=== PATIENT | male | born 2005 | race Two or more races ===

== ENCOUNTER 2024-06-25 01:13 | Emergency (ER) | payer MEDICAID, OTHER ==
[~2024-06-25] VITALS: Ht 177.8 cm; Wt 100.0 kg
--- NOTE | 2024-06-25 03:03 | DVH ---
CLINICAL INDICATION: JUMPED ABOUT A FOOT DOWN LANDED ON RIGHT FOOT TECHNIQUE: Frontal, lateral and oblique XY R FOOT 3 VIEW XRAY Comparison: None FINDINGS/IMPRESSION: : Comminuted and impacted fractures of the calcaneus with small fracture fragments in the sole of foot. The subtalar joint appears intact. The ankle joint is intact. Significant soft tissue swelling at the hindfoot.
[2024-06-25 03:20] VITALS: PULSE 90; RESP 15; TEMP 98.3; O2SAT 97
[2024-06-25] MEDS: ONDANSETRON HCL 4 MG/2 ML VIAL IV ONE (03:42)
[2024-06-25] MEDS: MORPHINE SULFATE 4 MG/ML SYR/VIAL IV ONE (03:42)
[2024-06-25] MEDS: ACETAMINOPHEN IV 1000 MG/100ML (10MG/ML) IV ONE (04:04)
[2024-06-25] MEDS: KETOROLAC TROMETH 30 MG/ML 1ML VIAL IV ONE (04:04)
[2024-06-25] MEDS: fentaNYL CITRATE 100 MCG/2 ML VL IV ONE ×2 (04:12→05:51)
--- NOTE | 2024-06-25 04:49 | ED.PDOC ---
Past Medical History PAST MEDICAL HISTORY: Denies Surgical History: Denies all surgeries Family History Family History: Reviewed,noncontributory to illness Social History Smoker: Non-Smoker Alcohol: Denies ETOH Use Drugs: Denies Drug Use Lives In: Home Vital Signs Vital Signs Date Time Temp Pulse Resp B/P (MAP) Pulse Ox O2 Delivery O2 Flow Rate FiO2 06/25/24 04:12 157/84 06/25/24 04:12 80 16 06/25/24 03:20 97 Room Air* 0 21 06/25/24 03:20 98.3 98.3 Was a procedure done? Was a procedure done?: No Differential Diagnosis EXT Differential Diagnosis: Cellulitis, Fracture, Sprain, Dislocation, Strain X-Ray, Labs, Meds, VS Vital Signs Date Time Temp Pulse Resp B/P (MAP) Pulse Ox O2 Delivery O2 Flow Rate FiO2 06/25/24 04:12 157/84 06/25/24 04:12 80 16 140/82 06/25/24 03:42 90 1 157/84 06/25/24 03:20 90 15 97 Room Air* 0 21 06/25/24 03:20 98.3 90 15 157/84 (108) 97 98.3 06/25/24 01:47 98.8 102 18 144/84 (104) 98 Current Medications Medications (Trade) Dose Ordered Sig/Lucero Route Start Time Stop Time Status Last Admin Ondansetron HCl (Zofran) 4 mg ONCE ONCE IV 06/25/24 03:30 06/25/24 03:31 DC 06/25/24 03:42 Morphine Sulfate 4 mg ONCE ONCE IV 06/25/24 03:30 06/25/24 03:31 DC 06/25/24 03:42 Ketorolac Tromethamine (Toradol Injection) 30 mg ONCE ONCE IV 06/25/24 04:00 06/25/24 04:01 DC 06/25/24 04:04 Acetaminophen (Ofirmev) 1,000 mg ONCE ONCE IV 06/25/24 04:00 06/25/24 04:01 DC 06/25/24 04:04 Fentanyl Citrate 25 mcg ONCE ONCE IV 06/25/24 04:00 06/25/24 04:06 DC 06/25/24 04:12 PROCEDURE(s): RFOOT - R FOOT 3 VIEW XRAY CLINICAL INDICATION: JUMPED ABOUT A FOOT DOWN LANDED ON RIGHT FOOT TECHNIQUE: Frontal, lateral and oblique XY R FOOT 3 VIEW XRAY Comparison: None FINDINGS/IMPRESSION: : Comminuted and impacted fractures of the calcaneus with small fracture fragments in the sole of foot. The subtalar joint appears intact. The ankle joint is intact. Significant soft tissue swelling at the hindfoot. Time of 1ST Reevaluation: 04:20 Reevaluation 1ST: Unchanged Patient Education/Counseling: Diagnosis, Treatment Family Education/Counseling: Diagnosis, Treatment Departure 1 Departure Comments Extensive evaluation was performed in attempt to identify or rule out: (See differential diagnosis section) The following tests were ordered, and results were reviewed by me: (See diagnostic results section) The following test were independently interpreted by me: N/A I reviewed and agreed with the following test results read by other providers: N/A I reviewed the following notes from the pt's past medical encounters: (None available at this time) Additional information was gathered from interviewing the following independent historians: N/A Discussion of management or test interpretation with external physician/other qualified health home health care worker: N/A Addressed [ ]one or more chronic illnesses with severe exacerbation, progres jennifer, or side effects of treatment: [ ]an acute or chronic illness that poses a threat to life or bodily function: [ ] Decision regarding hospitalization or escalation of hospital level of care: Risk and benefits of admission for further treatment of patient's condition was considered. Due to patient's current clinical condition, high risk of decline and poor outcome if discharged and need for further inpatient management and monitoring, patient will be admitted to the hospital. Drug therapy requiring intensive monitoring for toxicity: N/A Parenteral controlled substances: N/A Decision regarding elective major surgery with identified patient or procedure risk factors: N/A Decision regarding emergency major surgery: N/A Decision not to resuscitate or to de-escalate care because of poor prognosis: N/A Diagnosis or treatment significantly limited by social determinants of health: N/A Decision regarding hospitalization or escalation of hospital level of care: Risks and benefits of admission for further treatment of patient's condition was considered however due to patient's stable condition patient will be discharged to follow up closely or return to care for worsening of condition or inability to follow up. Critical Care Note Critical Care Time?: Yes (35 min-critical care time only) Critical care comment: Calcaneal fracture Stability Stability form required: No Heart Score Heart Score: Heart Score Response (Comments) Value History N/A 0 EKG N/A 0 Age N/A 0 Risk Factors N/A 0 Troponin N/A 0 Total 0 I personally scribed for CELSO VIGIL MD ([email or web address]) on 06/25/24 at 04:49. Electronically submitted by Cipriano Barrera (Bringrs). I personally scribed for CELSO VIGIL MD ([email or web address]) on 06/25/24 at 04:52. Electronically submitted by Cipriano Barrera ([employer]). CELSO VIGIL MD Jun 25, 2024 04:49
--- NOTE | 2024-06-25 04:58 | ED.PDOC ---
Musculoskeletal HPI Comments 19 year old male came to ER due to right foot pain., Patient states he jumped and his right foot landed badly on some rocks. Noted pain and swelling on the heel of his right foot. No other injuries noted. Chief Complaint: Lower Extremity Time Seen by MD: 04:56 Reviewed Notes: Nurses Notes Allergies: Coded Allergies: No Known Drug Allergy (Verified Allergy, Unknown, 06/25/24) Information Source: Patient Mode of Arrival: Ambulatory Location: Right Extremity Location: Foot Timing: Minutes Prehospital treatment: None Severity: Moderate Able to Move Extremity: Yes Bear Weight: Limited Pain: Moderate Hand Dominance: Right Mechanism: Blunt Trauma Circumstances: Fall Onset of Symptoms: After Trauma Symptoms: Swelling, Pain Associated signs and symptoms: Foot pain (right) Review of Systems REVIEW OF SYSTEMS: No fever, no chills, or fatigue HEENT: No sore throat, no earache, no congestion, no neck pain. Cardiac: No chest pain. No palpitations. Lungs: No shortness of breath, no cough. GI: No nausea, no vomiting, no diarrhea, no constipation, no abdominal pain : No dysuria, frequency, or urgency. No hematuria. Musculoskeletal: No joint pain , no joint swelling, no extremity edema. (+) right foot pain Skin: No rash, no itching. Neuro: No headache, no dizziness, no weakness Vital Signs Vital Signs Date Time Temp Pulse Resp B/P (MAP) Pulse Ox O2 Delivery O2 Flow Rate FiO2 06/25/24 04:12 157/84 06/25/24 04:12 80 16 06/25/24 03:20 97 Room Air* 0 21 06/25/24 03:20 98.3 98.3 Physical Exam General: Awake, alert and oriented. No acute distress. Skin: Skin in warm, dry and intact. Appropriate color for ethnicity. Nailbeds pink with no cyanosis. HEENT: The head is normocephalic and atraumatic. Conjunctivae are clear without exudates or hemorrhage. Sclera is non-icteric. EOM are intact. No signs of nystagmus. Eyelids are normal in appearance without swelling or lesions. Oral mucosa is pink and moist Neck: The neck is supple with normal range of motion. No JVD. Cardiac: Heart rate and rhythm are normal. No murmurs, gallops, or rubs are auscultated. Respiratory: No signs of respiratory distress. Lung sounds are clear in all lobes bilaterally without rales, ronchi, or wheezes. Abdominal: Abdomen is soft, non-tender without distention. Bowel sounds are present and normoactive in all four quadrants. Extremities: Upper and lower extremities are atraumatic in appearance without deformity or edema. Neurological: The patient is awake, alert and oriented to person, place, and time with normal speech. Speech is clear. There is no facial asymmetry. Psychiatric: Appropriate mood and affect. Good judgement and insight. No visual or auditory hallucinations. Past Medical History PAST MEDICAL HISTORY: Denies Surgical History: Denies all surgeries Family History Family History: Reviewed,noncontributory to illness Social History Smoker: Non-Smoker Alcohol: Denies ETOH Use Drugs: Denies Drug Use Lives In: Home Was a procedure done? Was a procedure done?: No Differential Diagnosis EXT Differential Diagnosis: Fracture, Sprain, Dislocation, Strain X-Ray, Labs, Meds, VS Vital Signs Date Time Temp Pulse Resp B/P (MAP) Pulse Ox O2 Delivery O2 Flow Rate FiO2 06/25/24 04:12 157/84 06/25/24 04:12 80 16 140/82 06/25/24 03:42 90 1 157/84 06/25/24 03:20 90 15 97 Room Air* 0 21 06/25/24 03:20 98.3 90 15 157/84 (108) 97 98.3 06/25/24 01:47 98.8 102 18 144/84 (104) 98 Current Medications Medications (Trade) Dose Ordered Sig/Lucero Route Start Time Stop Time Status Last Admin Ondansetron HCl (Zofran) 4 mg ONCE ONCE IV 06/25/24 03:30 06/25/24 03:31 DC 06/25/24 03:42 Morphine Sulfate 4 mg ONCE ONCE IV 06/25/24 03:30 06/25/24 03:31 DC 06/25/24 03:42 Ketorolac Tromethamine (Toradol Injection) 30 mg ONCE ONCE IV 06/25/24 04:00 06/25/24 04:01 DC 06/25/24 04:04 Acetaminophen (Ofirmev) 1,000 mg ONCE ONCE IV 06/25/24 04:00 06/25/24 04:01 DC 06/25/24 04:04 Fentanyl Citrate 25 mcg ONCE ONCE IV 06/25/24 04:00 06/25/24 04:06 DC 06/25/24 04:12 PROCEDURE(s): RFOOT - R FOOT 3 VIEW XRAY CLINICAL INDICATION: JUMPED ABOUT A FOOT DOWN LANDED ON RIGHT FOOT TECHNIQUE: Frontal, lateral and oblique XY R FOOT 3 VIEW XRAY Comparison: None FINDINGS/IMPRESSION: : Comminuted and impacted fractures of the calcaneus with small fracture fragments in the sole of foot. The subtalar joint appears intact. The ankle joint is intact. Significant soft tissue swelling at the hindfoot. Time of 1ST Reevaluation: :20 Reevaluation 1ST: Unchanged Patient Education/Counseling: Diagnosis, Treatment Family Education/Counseling: Diagnosis, Treatment Departure 1 Departure Time of Disposition: : Impression: Primary Impression: Closed right calcaneal fracture Disposition: HOME / SELF CARE / HOMELESS Condition: Stable Additional Instructions: ED DISCHARGE INSTRUCTIONS Instructions: Please read all instructions provided in this packet carefully. DO NOT PUT ANY WEIGHT ON THE RIGHT FOOT. USE CRUTCHES FOR WALKING. FOLLOW UP WITH ORTHOPEDICS OR PODIATRY SOON POSSIBLE (WITHIN THE NEXT WEEK). YOU WILL NEED A REFERRAL FROM YOUR PRIMARY CARE PROVIDER. TAKE PAIN MEDICATION PRESCRIBED. DO NOT TAKE MORE THAN IS NEEDED. Although you have been discharged from the Emergency Department, this does not mean that you have a "clean bill of health". No definitive diagnosis for your symptoms has been made today. It is possible that you are in the process of developing a serious illness. This is why you must return to the ED without fail if any new or worsening symptoms (especially if your symptoms include chest pain, trouble breathing, abdominal pain, fever, headache, confusion, trouble seeing, or trouble walking) It is also very important that you see a primary care doctor within the next 3-5 days to follow up. If you are unable to get an appointment, return to the ED for re-evaluation. Splint Care Tips A splint protects a broken bone or other injury. If you have a removable splint, follow your doctor's instructions and only remove the splint if your doctor says it's okay. Most splints can be adjusted. Your doctor will show you how to do this and will tell you when you might need to adjust the splint. A splint is sometimes called a brace. You may also hear it called an immobilizer. An immobilizer, such as a splint or cast, keeps you from moving the injured area. You may get a splint that's already factory-made. Or your doctor might make your splint from plaster or fiberglass. Some splints have a built-in air cushion. Air pads are inflated to hold the injured area in place. How can you care for yourself when you wear a splint? General care Follow your doctor's instructions on how much weight you can put on your injured limb. If the fingers or toes on the limb with the splint were not injured, wiggle them every now and then. This helps move the blood and fluids in the injured limb. Prop up the injured limb on a pillow when you ice it or anytime you sit or lie down during the next 3 days. Try to keep it above the level of your heart. This will help reduce swelling. Put ice or cold packs on the limb for 10 to 20 minutes at a time. Try to do this every 1 to 2 hours for the next 3 days (when you are awake) or until the swelling goes down. Be careful not to get the splint wet. Put a thin cloth between the ice and your skin. If your splint is removable, ask your doctor if you can take it off when you use ice. If you have an adjustable splint that feels too tight, loosen it slightly. Keep up your muscle strength and tone as much as you can while protecting your injured limb. Your doctor may want you to tense and relax the muscles protected by the splint. Check with your doctor or your physical or occupational therapist for instructions. Splint and skin care If your splint is not to be removed, try blowing cool air from a inspector hairspring truing or fan into the splint to help relieve itching. Never stick items under your splint to scratch the skin. Do not use oils or lotions near your splint. If the skin becomes red or sore around the edge of the splint, you may pad the edges with a soft material, such as moleskin, or use tape to cover the edges. If you're allowed to take your splint off, be sure your skin is dry before you put it back on. Be careful not to put the splint on too tightly. Check the skin under the splint every day. If you can't remove the splint, check the skin around the edges. Tell your doctor if you see redness or sores. Water and your splint Keep your splint dry. Moisture can collect under the splint and cause skin irritation and itching. If you have a wound or have had surgery, moisture under the splint can increase the risk of infection. Tape a sheet of plastic to cover your splint when you take a shower or bath, unless your doctor said you can take it off while bathing. If you can take the splint off when you bathe, pat the area dry after bathing and put the splint back on. If your splint gets a little wet, you can dry it with a inspector hairspring truing. Use a "cool" setting. Wearing a splint: When to call Call your doctor now or seek immediate medical care if: You have increased or severe pain. You feel a warm or painful spot under the splint. You have problems with your splint. For example: The skin under the splint is burning or stinging. The splint feels too tight. There is a lot of swelling near the splint. (Some swelling is normal.) You have a new fever. There is drainage or a bad smell coming from the splint. Your limb turns cold or changes color. You have trouble moving your fingers or toes. You have symptoms of a blood clot in your arm or leg (called a deep vein thrombosis). These may include: Pain in the arm, calf, back of the knee, thigh, or groin. Redness and swelling in the arm, leg, or groin. Watch closely for changes in your health, and be sure to contact your doctor if: The splint is breaking apart or losing its shape. You are not getting better as expected. e-Prescriptions Acetaminophen (Acetaminophen Er) 650 Mg Tab 650 MG PO QIDPRN for 10 Days, #40 TAB Prov: CELSO VIGIL MD 06/25/24 Tramadol Hcl (Tramadol Hcl) 50 Mg Tab 50 MG PO TIDPRN PRN for 3 Days, #9 TAB Prov: CELSO VIGIL MD 06/25/24 Comments 19-year-old male jumped from unknown height onto rocks resulting In closed comminuted right calcaneal fracture. Right lower extremity is neurovascularly intact. Splint placed. DISCUSSED WITH DR. GONZALEZ @ 5:30 AM. RECOMMENDATION IS OUTPATIENT FOLLOW UP, PATIENT WILL NEED REFERRAL TO [facility] OR OTHER ORTHOPEDISTS WHO SPECIALIZES IN THESE TYPES OF FRACTURES. Critical Care Note Critical Care Time?: Yes (35 min-critical care time only) Critical care comment: Calcaneal fracture Stability Stability form required: No Heart Score Heart Score: Heart Score Response (Comments) Value History N/A 0 EKG N/A 0 Age N/A 0 Risk Factors N/A 0 Troponin N/A 0 Total 0 I personally scribed for CELSO VIGIL MD ([email or web address]) on 06/25/24 at 04:58. Electronically submitted by Cipriano Barrera ([email or web address]). CELSO VIGIL MD Jun 25, 2024 04:58
[2024-06-25 05:00] VITALS: PULSE 82; RESP 17; O2SAT 95
--- NOTE | 2024-06-25 05:13 | DVH ---
Exam: CT CT R FOOT WO CONTRAST History: Heel fracture, jumping injury. Comparison Study: None available at time of dictation. TECHNIQUE: Multidetector CT of the right foot was performed from lung bases to pubic symphysis. Imagi ng was performed without IV contrast. Axial, coronal and sagittal multiplanar reformats were obtained from the axial data set by the technologist. Radiation optimization: All CT scans at this facility use at least one of these dose optimization dylan hniques: automated exposure control mA and/or kV adjustment per patient size (includes targeted exam s where dose is matched to clinical indication) or iterative reconstruction. Radiation Dose Information: CT Dose: CTDI volume is 7.8 mGy. Dose-length product is 201.3 mGy*cm FINDINGS: There is a comminuted fracture of the calcaneal tuberosity extending into the medial and lateral proc ess with mild displacement of small fracture fragments towards the plantar aspect. There is intra-art icular extension to the posterior facet at the calcaneal talar joint. There is a intraosseous lipoma along the anterior process not involved by fracture. There is associated soft tissue swelling and sma ll hematoma. No evidence of intraosseous gas suggest open fracture. The talus, carpals, and metacarpals appear unremarkable. Mild degenerative changes of the midfoot. IMPRESSION: 1. Comminuted fracture of the calcaneal tuberosity extending into the medial and lateral process with mild displacement of small fracture fragments towards the plantar aspect and intra-articular extensi on to the posterior facet at the calcaneal talar joint. 2. Intraosseous lipoma. HS:Y
[2024-06-25] MEDS ORDERED: ACET650T12 PO (05:25)
[2024-06-25] MEDS ORDERED: TRAM50TA2 PO (05:25)
[2024-06-25] MEDS: traMADol HCL 50 MG TAB PO ONE (05:33)
[2024-06-25 05:51] VITALS: BP 155/87
== END 2024-06-25 06:15 | disposition home or self-care (01) ==
LOC: EEVIPCON 01:13 → ER 01:13
DX: S92.041A Displaced other fracture of tuberosity of right calcaneus, initial encounter for closed fracture (principal); X58.XXXA Exposure to other specified factors, initial encounter; Y93.39 Activity, other involving climbing, rappelling and jumping off; Y92.89 Other specified places as the place of occurrence of the external cause; Y99.8 Other external cause status
CPT/HCPCS: 29515; 73630; 73700; 96374; 96375; 96376; 99285; J1885; J2270; J2405; J3010; J0131